=== PATIENT | female | born 2000 | race Caucasian/White ===

== ENCOUNTER 2021-12-18 12:29 | Emergency (ER) | payer MEDICARE, SELFPAY ==
[2021-12-18 12:36] VITALS: BP 120/78; PULSE 71; RESP 16; TEMP 36.8; O2SAT 97
--- NOTE | 2021-12-18 12:53 | ED.GENADUL_ITS ---
Discharge Plan Disposition Patient Disposition: HOME Condition: Stable Discharge Details Clinical Impression: Allergic reaction, Otitis externa Primary Care Provider: None,None ED Provider: Kevin Soria Home Meds and New Rx's Prescriptions: New prednisone 20 mg tablet 60 mg PO DAILY 5 Days Qty: 15 0RF Cortisporin-TC 3.3-3-10-0.5 mg/mL drops,suspension 4 drp otic (ear) TID 7 Days Qty: 10 0RF Discharge Instructions Instructions: General Allergic Reaction (ED) Additional Instructions: Cortisporin and prednisone as directed. Please watch for new or worsening symptoms and return to the ER for any concerns. Please continue establishing new local primary care follow-up here in [place] and follow-up at next available appointment Discharge Data Discharge Date/Time-TO BE ENTERED AT DEPARTURE: 12/18/21 15:12 Medical Decision Making This is a 21-year-old female who has a complicated past medical history, atypical allergic reactions and currently being worked up in [place] presenting with what mother reports as a normal allergic reaction which only steroids will help. While she groans and makes noises she is nonverbal and the capacity to give me a clear HPI. Clinically she has a rash to her forehead and bilateral hands as well as some swelling to her left ear canal with mild drainage. I believe initiating Cortisporin and steroid therapy is reasonable, mother reports this is what typically helps. Given the overall atypical presentation and multiple complaints, plan is to obtain routine screening laboratory values as well as a urinalysis. While there is question of simple urinary retention, will obtain a bladder scan. Bladder scan reveals no urine. Patient was able to provide a small urine sample. Will provide 1 L IV fluid as well. CBC, CMP, urinalysis all unremarkable for any obvious emergent process and/or infection. At this time and laboratory values are reassuring. Discussed laboratory values with mother. A single dose of IV Solu-Medrol has been provided. They are in the process of establishing primary care follow-up here in [place]. Discussed options with mother. She feels as though this is a rather typical presentation for her daughter and is quite comfortable taking her home her current condition. Plan is to provide a prescription for Cortisporin as well as a 5-day burst dose of steroids in addition to her IV Solu-Medrol today. Patient was unable to provide a stool sample here in the ER today for testing. Standard discharge and return precautions were provided. Patient understands, is agreeable to this plan, and has no additional questions or concerns upon discharge. This documentation was generated using [employer] dictation system, please disregard any oddities of phrase or misspellings. Lab Data Lab results reviewed: Yes I reviewed the patient's lab results. Labs: Laboratory Tests Range/Units 12/18/21 12/18/21 12/18/21 12:58 13:05 13:05 WBC (4.4-10.8) 10^3/uL 5.39 RBC (3.93-5.22) 10^6/uL 4.91 Hgb (11.2-15.7) g/dL 13.8 Hct (36.0-46.0) % 40.2 MCV (80-95) fL 82 MCH (27.0-33.0) pg 28.1 MCHC (32.0-36.0) % 34.3 RDW (11.7-14.6) % 12.4 Plt Count (130-400) 10^3/uL 351 MPV (8.0-11.0) fL 9.2 Immature Gran % 0.0 Neutrophils % 48.4 Lymphocytes % 41.2 Monocytes % 8.2 Eosinophils % 1.1 Basophils % 1.1 Nucleated RBC % (0.0-0.3) % 0.0 Absolute Neutrophils (1.2-6.7) 10^3/uL 2.61 Absolute Lymphocytes (1.2-3.4) 10^3/uL 2.22 Absolute Monocytes (0.1-0.8) 10^3/uL 0.44 Absolute Eosinophils (0.0-0.7) 10^3/uL 0.06 Absolute Basophils (0.0-0.2) 10^3/uL 0.06 Sodium (136-145) mmol/L 140 Potassium (3.5-5.1) mmol/L 3.5 Chloride (98-107) mmol/L 107 Carbon Dioxide (21.0-32.0) mmol/L 23.7 Anion Gap (3-11) mmol/L 9.3 BUN (7-18) mg/dL 7 Creatinine (0.55-1.02) mg/dL 0.7 Estimated GFR/1.73 m2 (mL/min/1.73m2) >= 60.00 Glucose (74-106) mg/dL 89 Calcium (8.5-10.1) mg/dL 8.7 Total Bilirubin (0.2-1.0) mg/dL 0.6 AST (15-37) U/L 18 ALT (14-59) U/L 18 Alkaline Phosphatase (46-116) U/L 70 Total Protein (6.4-8.2) g/dL 7.3 Albumin (3.4-5.0) g/dL 3.9 Lipase (73-393) U/L 106 Urine Color (Yellow) Yellow Urine Clarity (Clear) Cloudy Urine pH (5-8) 5.5 Ur Specific [place] (1.005-1.025) >= 1.030 H Urine Protein (Negative) mg/dL Trace H Urine Ketones (Negative) mg/dL Trace H Urine Blood (Negative) Trace-intact H Urine Nitrite (Negative) Negative Urine Bilirubin (Negative) Negative Urine Urobilinogen (Up TO 0.2) EU/dL 0.2 Ur Leukocyte Esterase (Negative) Negative Urine RBC (0-2) HPF 3-5 H Urine WBC (0-5) HPF 0-2 Ur Epithelial Cells (Negative) HPF Many Urine Crystals (Negative) HPF Negative Urine Bacteria (Negative) HPF Many Urine Casts (Negative) LPF Negative Urine Mucus (Negative) Negative Ur Culture Indicated? No/Sq. Contamination Urine Glucose (Negative) mg/dL Negative HPI General Mode of arrival: ambulatory . Date/Time Provider Initiated Documentation: 12/18/21 12:37 . Limitations to Documentation: other (Baseline cognitive disability) . Information obtained by: patient and family . 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 The patient's mother reports that she has a complicated past medical history that includes a broad diagnosis of mast cell syndrome which essentially means that she gets these atypical allergic reactions. They have moved from [place] to the [facility] and overall her allergies are improved. Over the past several days she has developed swelling on her forehead, bilateral hands, reports headache, abdominal pain, intermittent diarrhea and constipation which again is all typical for her allergic condition. They state that they are being evaluated and worked up by specialist in [place]. Mother reports that she attempted an [id number] supplement 2 days ago to see if it would help and that is when the diarrhea began, stopped the supplement and no longer having any diarrhea. Denies recent illness or trauma. Reports that she often gets fluid behind her ears as well as nasal congestion, and the only treatment is steroids and eardrops. Mother reports that she has a history of C. difficile but this is not a typical C. difficile presentation for her and she is no longer having diarrhea. She also states that she tends to have urinary retention and or urinary symptoms when she has a flareup. Related Data Home Medications Medication Instructions Recorded Confirmed [id number] 3.3 4 drp otic (ear) TID 7 days #10 mL 12/18/21 mg-3 mg-10 mg-0.5 mg/mL ear drops,susp (Cortisporin-TC) prednisone 20 mg tablet 60 mg PO DAILY 5 days #15 tabs 12/18/21 Previous Rx's Medication Instructions Recorded [id number] 3.3 4 drp otic (ear) TID 7 days #10 mL 12/18/21 mg-3 mg-10 mg-0.5 mg/mL ear drops,susp (Cortisporin-TC) prednisone 20 mg tablet 60 mg PO DAILY 5 days #15 tabs 12/18/21 Allergies Allergy/AdvReac Type Severity Reaction Status Date / Time amoxicillin Allergy Unverified 12/18/21 12:42 pollen extracts Allergy Unverified 12/18/21 12:42 General Stated Complaint: Abd Prob TRIP: 4 Review of Systems Constitutional Constitutional: Denies fever(s) and Reports headache(s) ENT Ears, Nose, Mouth, and Throat: Reports headache(s), Denies lip swelling, Denies neck pain and Denies tongue swelling Cardiovascular Cardiovascular: Denies chest pain and Denies dyspnea Respiratory Respiratory: Denies cough, Denies dyspnea and Denies wheezing Gastrointestinal Gastrointestinal: Reports abdominal pain, Reports constipation, Reports diarrhea and Denies vomiting Genitourinary Genitourinary: Denies dysuria and Reports urinary urgency Musculoskeletal Musculoskeletal: Denies neck pain Integumentary/Breasts Skin/Breast: Reports rash Neurologic Neurologic: Reports headache(s) Allergic/Immunologic Allergic/Immunologic: Denies lip swelling, Denies tongue swelling and Denies wheezing PFSH All Active Problems (Updated 12/19/21 @ 09:02 by MELY Muñoz) Allergic reaction (Acute) Otitis externa (Acute) Social History Smoking/Tobacco Use Status: Never Smoking risk assessment performed?: Yes Alcohol Intake: never Substance use type: does not use Do you feel safe at home: Yes Do you feel safe in your relationship?: Yes Exam Const General: cooperative and healthy appearing Orientation: alert and awake HENWY Head: normal to inspection, normocephalic and atraumatic Ears: mastoids normal Mouth: moist mucous membranes Throat: posterior oropharynx normal Other: Right TM with minimal erythema but no air-fluid level, bulging or retraction. Canal is unremarkable. Left TM is unremarkable, left canal with mild swelling and white drainage. Centrally on her forehead there is a mild papular eryth ematous rash which is blanchable, no signs of secondary infection. Skin is intact. Eyes General: appearance normal, both eyes and all related structures Conjunctivae: conjunctivae normal Neck Neck: normal visual inspection, full ROM, no lymphadenopathy, trachea midline, supple and nontender Resp Effort & Inspection: normal respiratory effort and able to speak in complete sentences Auscultation: clear to auscultation bilaterally Cardio Rate: regular rate Rhythm: regular rhythm GI Inspection: normal to inspection Palpation: soft, not firm, no guarding, no pulsatile masses and nontender Auscultation: normal bowel sounds Back/Spine/Pelvis Back: No back tenderness Skin General skin exam: erythema Rashes: rashes noted Neuro General: patient alert, patient awake, moves all extremities, no focal motor deficits and other (Mother reports that the patient is at her baseline mental status) Gait: normal gait Motor: movement abnormality noted Sensory Exam: no sensory deficits noted Extrem General: full ROM and capillary refill normal Other: Bilateral hands, more so on the dorsal aspect at the base of the thumb and over the first metacarpal there is a papular erythematous excoriated rash. Blanchable. No signs of secondary infection. Neuro, vascular, tendon intact. Psych Appearance: grossly normal Mental Status: mental status grossly normal Course Vital Signs Vital signs: Vital Signs Temperature 36.8 C 12/18/21 12:36 Pulse 71 12/18/21 12:36 Respiratory Rate 16 12/18/21 12:36 Blood Pressure 120/78 12/18/21 12:36 Pulse Oximetry 97 12/18/21 12:36 Temperature 36.8 C 12/18/21 12:36 Pulse 71 12/18/21 12:36 Respiratory Rate 16 12/18/21 12:36 Respiratory Effort 12/18/21 12:44 Blood Pressure 120/78 12/18/21 12:36 Pulse Oximetry 97 12/18/21 12:36 Comment 12/18/21 12:36
[2021-12-18] MEDS: Normal Saline 1,000 ML 1000 ML IV (13:08)
[2021-12-18 13:14] LABS: Absolute Basophil Count 0.06 10^3/uL (0.0-0.2); Absolute Eosinophil Count 0.06 10^3/uL (0.0-0.7); Absolute Lymphocyte Count 2.22 10^3/uL (1.2-3.4); Absolute Monocyte Count 0.44 10^3/uL (0.1-0.8); Absolute Neutrophil Count 2.61 10^3/uL (1.2-6.7); Basophils % 1.1; Eosinophils % 1.1; HCT 40.2 % (36.0-46.0); HGB 13.8 g/dL (11.2-15.7); Lymphocytes % 41.2; MCH 28.1 pg (27.0-33.0); MCHC 34.3 % (32.0-36.0); MCV 82 fL (80-95); MPV 9.2 fL (8.0-11.0); Monocytes % 8.2; Neutrophils % 48.4; Platelet Count 351 10^3/uL (130-400); RBC 4.91 10^6/uL (3.93-5.22); RDW 12.4 % (11.7-14.6); RDW-SD 36.8 fL; WBC 5.39 10^3/uL (4.4-10.8)
[2021-12-18 13:20] LABS: Bilirubin Negative (Negative); Blood Trace-intact (Negative); Clarity Cloudy (Clear); Glucose Negative (Negative); Ketones Trace mg/dL (Negative); Leukocyte Esterase Negative (Negative); Nitrite Negative (Negative); Specific Gravity >= 1.030 (1.005-1.025); Urobilinogen 0.2 EU/dL (Up TO 0.2); pH 5.5 (5-8)
[2021-12-18 13:28] LABS: Bacteria Many HPF (Negative); Casts Negative LPF (Negative); Crystals Negative HPF (Negative); Epithelial Cells Many HPF (Negative); Mucus Negative (Negative); WBC 0-2 HPF (0-5)
[2021-12-18 13:29] LABS: C & S Indicated? No/Sq. Contamination
[2021-12-18 13:44] LABS: ALT 18 U/L (14-59); AST 18 U/L (15-37); Albumin 3.9 g/dL (3.4-5.0); Alkaline Phosphatase 70 U/L (46-116); Anion Gap 9.3 mmol/L (3-11); BUN 7 mg/dL (7-18); Bilirubin, Total 0.6 mg/dL (0.2-1.0); CO2 23.7 mmol/L (21.0-32.0); CREATININE 0.7 mg/dL (0.55-1.02); Calcium 8.7 mg/dL (8.5-10.1); Chloride 107 mmol/L (98-107); Glucose 89 mg/dL (74-106); Lipase 106 U/L (73-393); Potassium 3.5 mmol/L (3.5-5.1); Sodium 140 mmol/L (136-145); Total Protein 7.3 g/dL (6.4-8.2)
[2021-12-18] MEDS: methylPREDNISolone SUCC 125 MG VIAL IVP (14:21)
[2021-12-18 15:03] VITALS: BP 155/99; PULSE 84; RESP 21; TEMP 37; O2SAT 98
[2021-12-18 15:06] VITALS: BP 155/99; PULSE 84; RESP 21; TEMP 37; O2SAT 98
== END 2021-12-18 15:12 | disposition home or self-care (01) ==
PROVIDERS: Emergency Provider Physician Assistant
DX: H60.92 Unspecified otitis externa, left ear (principal); T78.40XA Allergy, unspecified, initial encounter; R41.89 Other symptoms and signs involving cognitive functions and awareness; D89.40 Mast cell activation, unspecified
CPT/HCPCS: 36415; 80053; 81025; 83690; 96361; 96374; 99284; 81003; 81015; 85025; J2930

== ENCOUNTER 2021-12-28 16:43 | Emergency (ER) | payer MEDICARE, SELFPAY ==
[2021-12-28 16:44] VITALS: BP 102/60; PULSE 72; RESP 16; TEMP 36.6; O2SAT 98
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
[2021-12-28 17:25] LABS: Abs Immature Grans 0.02 10^3/uL (0.0-0.06); Absolute Basophil Count 0.03 10^3/uL (0.0-0.2); Absolute Eosinophil Count 0.01 10^3/uL (0.0-0.7); Absolute Lymphocyte Count 1.11 10^3/uL (1.2-3.4); Absolute Monocyte Count 0.32 10^3/uL (0.1-0.8); Absolute Neutrophil Count 4.46 10^3/uL (1.2-6.7); Basophils % 0.5; Eosinophils % 0.2; HCT 34.8 % (36.0-46.0); HGB 11.5 g/dL (11.2-15.7); Immature Grans % 0.3; Lymphocytes % 18.7; MCH 27.8 pg (27.0-33.0); MCV 84 fL (80-95); Monocytes % 5.4; Neutrophils % 74.9; RBC 4.14 10^6/uL (3.93-5.22); RDW 12.8 % (11.7-14.6); RDW-SD 39.5 fL; WBC 5.95 10^3/uL (4.4-10.8)
[2021-12-28 17:35] LABS: ALT 15 U/L (14-59); AST 14 U/L (15-37); Albumin 3.5 g/dL (3.4-5.0); Alkaline Phosphatase 69 U/L (46-116); Anion Gap 8.6 mmol/L (3-11); BUN 9 mg/dL (7-18); Bilirubin, Total 0.4 mg/dL (0.2-1.0); CO2 23.4 mmol/L (21.0-32.0); CREATININE 0.6 mg/dL (0.55-1.02); Calcium 8.4 mg/dL (8.5-10.1); Chloride 109 mmol/L (98-107); Glucose 93 mg/dL (74-106); Potassium 3.8 mmol/L (3.5-5.1); Sodium 141 mmol/L (136-145); Total Protein 6.6 g/dL (6.4-8.2)
[2021-12-28 17:44] LABS: HCG Qual (Serum) Negative
[2021-12-28] MEDS: Normal Saline 1,000 ML 1000 ML IV (18:12)
[2021-12-28 18:20] VITALS: PULSE 65; RESP 16
--- NOTE | 2021-12-30 09:24 | NUR.NOTE ---
Per Dr. Jolley the patient needs to establish care with a PCP, put the referral in the anesthesiologist and critical care's box for follow assistance. A referral was also made to [facility]-Neurology, Dr. Miller for a seizure in 1-2 weeks. I faxed the referral and put in the anesthesiologist and critical care's box for follow up.Nursing Note:
== END 2021-12-28 19:02 | disposition home or self-care (01) ==
LOC: ER 19:07
PROVIDERS: Emergency Provider Physician Assistant
DX: R56.9 Unspecified convulsions (principal)
CPT/HCPCS: 36415; 80053; 96360; 99284; 84703; 85025; 99283

== ENCOUNTER → 2022-01-08 09:49 | Outpatient (BNVA) | payer MEDICARE, SELFPAY | PROVIDERS: Referring Provider Physician Assistant; Visit Provider Psychiatry & Neurology Neurology | DX: D89.49 Other mast cell activation disorder (principal); F84.0 Autistic disorder; Z86.61 Personal history of infections of the central nervous system; G40.109 Localization-related (focal) (partial) symptomatic epilepsy and epileptic syndromes with simple partial seizures, not intractable, without status epilepticus; R52 Pain, unspecified | CPT/HCPCS: 99215 ==

== ENCOUNTER 2022-03-09 21:42 | Emergency (ER) | payer MEDICARE, MEDICAID, SELFPAY ==
[2022-03-09 21:48] VITALS: BP 134/87; PULSE 70; RESP 18; TEMP 37; O2SAT 96
--- NOTE | 2022-03-09 22:38 | W.ED.GENAD ---
Discharge Plan Disposition Patient Disposition: HOME Condition: Stable Discharge Details Clinical Impression: Mast cell activation, unspecified Primary Care Provider: Willem Aguirre ED Provider: Jaxson Swain Home Meds and New Rx's Prescriptions: New hydroxyzine HCl 25 mg tablet 25 mg PO QID PRN (Reason: itching) Qty: 30 1RF methylprednisolone [Medrol (Alfredito)] 4 mg tablets,dose pack See Rx Instructions .ROUTE .COMPLEX Qty: 21 0RF Rx Instructions: orally per package directions No Action albuterol sulfate 90 mcg/actuation HFA aerosol inhaler 2 puff inhalation Q6H PRN Discharge Instructions Instructions: Dermatitis (ED) Additional Instructions: Patient if patient develops any new or significant worsening of symptoms please return immediately to the emergency department for reassessment. If any of patient's rash starts to become persistently erythematous or has worsening drainage or signs of infection return immediately to the emergency department otherwise take medication as prescribed and follow-up with primary care provider. Referrals: Willem Aguirre MD [Primary Care Provider] - 1 week Discharge Data Discharge Date/Time-TO BE ENTERED AT DEPARTURE: 03/09/22 23:38 Medical Decision Making Patient presenting to the emergency department for chief complaint of rash. Mother states long ongoing history of mast cell disorder with months of activated rash. Over the past 5 days there appears to have acutely worsened causing more pain and discomfort. 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 Physical exam shows diffuse erythematous papules noted to forehead, upper lip, cheeks, and right hand. Lung sounds are clear, no findings in the oropharynx, no respiratory symptoms. After physical exam I do feel that this is patient's chronic mast cell disorder with acute worsening of symptoms. Discussed with mother use of antihistamines which she states that typically do not work except for hydroxyzine. Discussed with mother use of steroids as well given more severe symptoms. Mother does state that these have helped and so we will give patient dose of Decadron. Mother does report some increased odorous urine and question of painful urination by patient. Will check urinalysis but patient otherwise in stable condition with no obvious findings but difficult to fully obtain history due to patient's autism disorder. Urinalysis is unremarkable for any infectious findings. I wonder if there is other areas of lesions or involvement causing discomfort. Will prescribe hydroxyzine for home use due to mother stating that this works better than other antihistamines and also a Medrol Dosepak. Patient placed upon follow-up list to follow-up with primary care provider for reassessment preferably in the next week given that this is being going on for months with acute worsening over the past 5 days. After discussion of diagnosis and plan of care mother has no further needs, questions, or concerns and states clear understanding to return to the emergency department for any worsening symptoms. This documentation was generated using [employer] system, please disregard any oddities of phrase or misspellings. Lab Data Lab results reviewed: Yes I reviewed the patient's lab results. HPI General Mode of arrival: ambulatory. Date/Time Provider Initiated Documentation: 03/09/22 21:44. Limitations to Documentation: no limitations. Information obtained by: patient. History of Present Illness 21 year old F presents to the emergency department with the chief complaint of rash, described as moderate, severe and similar to prior episodes, Patient started experiencing this month(s) and it has been constant and intermittent. No relieving factors improve symptom(s), Other factors that worsen symptoms (Environmental allergens) . Patient did receive the following treatments prior to arrival, none Related Data Home Medications Medication Instructions Recorded Confirmed albuterol sulfate 90 mcg/actuation 2 puff inhalation Q6H PRN 01/08/22 03/09/22 aerosol inhaler hydroxyzine HCl 25 mg tablet 25 mg PO QID PRN itching #30 tabs 03/09/22 methylprednisolone 4 mg tablets in See Rx Instructions PO .COMPLEX 03/09/22 a dose pack (Medrol (Alfredito)) #21 dose pk Previous Rx's Medication Instructions Recorded hydroxyzine HCl 25 mg tablet 25 mg PO QID PRN itching #30 tabs 03/09/22 methylprednisolone 4 mg tablets in See Rx Instructions PO .COMPLEX 03/09/22 a dose pack (Medrol (Alfredito)) #21 dose pk Allergies Allergy/AdvReac Type Severity Reaction Status Date / Time Iodinated Contrast Media Allergy Unknown Verified 03/09/22 22:00 amoxicillin Allergy Unverified 03/09/22 22:00 pollen extracts Allergy Unverified 03/09/22 22:00 mold Allergy Unknown Uncoded 03/09/22 22:00 General Stated Complaint: Allergic TRIP: 3 Review of Systems Narrative: Difficult to obtain due to autism disorder-review of systems obtained by mother Constitutional Constitutional: Denies fever(s) ENT Ears, Nose, Mouth, and Throat: Denies throat swelling and Denies tongue swelling Cardiovascular Cardiovascular: Denies chest pain and Denies dyspnea Respiratory Respiratory: Denies cough, Denies dyspnea, Denies stridor and Denies wheezing Gastrointestinal Gastrointestinal: Denies abdominal pain, Denies nausea and Denies vomiting Genitourinary Genitourinary: Reports dysuria and Reports other (Odorous urine) Musculoskeletal Musculoskeletal: Denies arthralgias and Denies joint swelling Integumentary/Breasts Skin/Breast: Reports as per HPI, Reports erythema and Reports rash Allergic/Immunologic Allergic/Immunologic: Reports as per HPI, Denies throat swelling, Denies tongue swelling and Denies wheezing PFSH All Active Problems (Updated 03/09/22 @ 23:09 by Jaxson Swain NP) Mast cell activation, unspecified (Acute) Partial epilepsy (Acute) Pain (Acute) Medical History Autism spectrum disorder since diagnosis of meningitis at age 3 History of Clostridioides difficile colitis at age 8 Mast cell disorder Meningitis at age 3 Seizure disorder since diagnosis of meningitis at age 3 Surgical History H/O wisdom tooth extraction History of ear surgery multiple, bilateral, with reconstruction, secondary to meningitis; 2008 and 2011 History of sinus surgery 2006 Social History Smoking/Tobacco Use Status: Never Smoking risk assessment performed?: Yes Alcohol Intake: never Drug use: Never Substance use type: does not use Household members: family current occupation: Disabled Do you feel safe at home: Yes Do you feel safe in your relationship?: Yes Exam Const General: cooperative, no acute distress and not ill appearing Orientation: alert and awake HENMT Ears: TM's normal bilaterally and EAC's normal General nose exam: external nose normal Mouth: oral mucosae normal, lip normal (Lesion on lip but no signs of angioedema), tongue normal, oropharynx normal and moist mucous membranes Throat: posterior oropharynx normal Resp Effort & Inspection: normal respiratory effort, able to speak in complete sentences and no respiratory distress Auscultation: clear to auscultation bilaterally Cardio Rate: regular rate Rhythm: regular rhythm Heart Sounds: S1 normal and S2 normal Skin Rashes: rashes noted papules diffuse multiple locations morphology dome-shaped, surface blanching and erythematous and tender Neuro General: patient alert, patient awake, moves all extremities and no focal motor deficits Course Vital Signs Vital signs: Vital Signs Temperature 37.0 C 03/09/22 21:48 Pulse 70 03/09/22 21:48 Respiratory Rate 18 03/09/22 21:48 Blood Pressure 134/87 03/09/22 21:48 Pulse Oximetry 96 03/09/22 21:48 Temperature 37.0 C 03/09/22 21:48 Temperature Source Skin 03/09/22 21:48 Pulse 70 03/09/22 21:48 Respiratory Rate 18 03/09/22 21:48 Respiratory Effort 03/09/22 21:57 Respiratory Pattern Normal 03/09/22 21:57 Blood Pressure 134/87 03/09/22 21:48 Blood Pressure Position Sitting 03/09/22 21:48 Pulse Oximetry 96 03/09/22 21:48 Oxygen Delivery Method Room Air 03/09/22 21:48 Oxygen Flow Rate 0 03/09/22 21:48 Pain Level 5 03/09/22 21:48
[2022-03-09] MEDS: hydrOXYzine HCL 25 MG TAB PO (22:44)
[2022-03-09] MEDS: Dexamethasone 10 MG/ML VIAL PO (22:49)
[2022-03-09 23:15] LABS: Bilirubin Negative (Negative); Blood Negative (Negative); Clarity Clear (Clear); Glucose Negative (Negative); Ketones Negative (Negative); Leukocyte Esterase Negative (Negative); Nitrite Negative (Negative); Specific Gravity 1.015 (1.005-1.025); Urobilinogen 0.2 EU/dL (Up TO 0.2)
--- NOTE | 2022-03-09 23:34 | NUR.NOTE ---
Referral faxed to [facility] Dr Aguirre to f/u in a week to reassess Mast Cell Disorder.Nursing Note:
== END 2022-03-09 23:38 | disposition home or self-care (01) ==
PROVIDERS: Emergency Provider Nurse Practitioner Family; PCP Family Medicine
DX: D89.40 Mast cell activation, unspecified (principal)
CPT/HCPCS: 99283; 81003; 99284; J1100

== ENCOUNTER 2022-07-10 10:04 | Emergency (ER) | payer MEDICARE, SELFPAY | END 2022-07-10 11:46 | LOC: ER 10:08 | PROVIDERS: PCP Family Medicine | DX: Z53.21 Procedure and treatment not carried out due to patient leaving prior to being seen by health care provider (principal) ==

== ENCOUNTER 2023-03-28 07:07 | Emergency (ER) | payer MEDICARE, MEDICAID, SELFPAY ==
[2023-03-28 07:13] VITALS: BP 142/92; PULSE 90; RESP 18; TEMP 36.3; O2SAT 97
--- NOTE | 2023-03-28 07:21 | W.ED.GENAD ---
Discharge Plan Discharge Details Chief Complaint: GenMedical Clinical Impression: Acute right otitis media, Hives Primary Care Provider: Willem Aguirre ED Provider: Naun Jeff Home Meds and New Rx's Prescriptions: No Action albuterol sulfate 90 mcg/actuation HFA aerosol inhaler 2 puff inhalation Q6H PRN fluticasone propionate [Flonase Allergy Relief] 50 mcg/actuation spray,suspension 1 spray intranasal DAILY Rx Instructions: administer into each nostril hydroxyzine HCl 25 mg tablet 25 mg PO QID PRN (Reason: itching) Qty: 30 1RF Medical Decision Making 22-year-old female with a past medical history of mast cell degranulation syndrome, previous mastoiditis, who presents today for evaluation of runny nose, congestion, mild cough, and rash. Mother states that the mother was sick with runny nose congestion and cough few days ago, and is concerned that she has transmitted it to her daughter. Classically when the daughter becomes ill she develops a rash secondary to her mast cell degranulation syndrome, and breaks out in hives, in addition to her other symptoms. Patient is not able to add anything to the historical component. Mother denies any complaints on behalf of the patient otherwise. She has otherwise been eating and drinking well. She has not received any new medications today. Exam demonstrates mild rash on the patient's dorsal aspect of her hands, as well as her forehead. Right-sided otitis media. No meningeal signs. No mastoid tenderness. Concern for viral etiology, likely COVID or flu, however there is now evidence of bacterial otitis media. We will treat the patient's OM, give Benadryl and steroids for her rash and suspected mild degranulation syndrome, gently rehydrate monitor closely and reassess. Patient will be signed out to my colleague for follow-up on labs and reassessment. HPI General Date/Time Provider Initiated Documentation: 03/28/23 07:10. HPI Narrative: 22-year-old female with a past medical history of mast cell degranulation syndrome, previous mastoiditis, who presents today for evaluation of runny nose, congestion, mild cough, and rash. Mother states that the mother was sick with runny nose congestion and cough few days ago, and is concerned that she has transmitted it to her daughter. Classically when the daughter becomes ill she develops a rash secondary to her mast cell degranulation syndrome, and breaks out in hives, in addition to her other symptoms. Patient is not able to add anything to the historical component. Mother denies any complaints on behalf of the patient otherwise. She has otherwise been eating and drinking well. She has not received any new medications today. Related Data Home Medications Medication Instructions Recorded Confirmed albuterol sulfate 90 mcg/actuation 2 puff inhalation Q6H PRN 01/08/22 10/29/22 aerosol inhaler hydroxyzine HCl 25 mg tablet 25 mg PO QID PRN itching #30 tabs 03/09/22 10/29/22 fluticasone propionate 50 1 spray intranasal DAILY 10/28/22 10/29/22 mcg/actuation nasal spray,suspension (Flonase Allergy Relief) Previous Rx's Medication Instructions Recorded hydroxyzine HCl 25 mg tablet 25 mg PO QID PRN itching #30 tabs 03/09/22 Allergies Allergy/AdvReac Type Severity Reaction Status Date / Time Iodinated Contrast Media Allergy Unknown Verified 10/28/22 15:19 amoxicillin Allergy Unverified 10/28/22 15:19 cat dander Allergy Verified 10/28/22 15:20 horse dander Allergy Verified 10/28/22 15:20 pollen extracts Allergy Unverified 10/28/22 15:19 mold Allergy Unknown Uncoded 10/28/22 15:19 birds Allergy Uncoded 10/28/22 15:20 General Stated Complaint: GenMedical TRIP: 3 Review of Systems All systems reviewed & are unremarkable except as noted in HPI and below PFSH All Active Problems (Updated 03/28/23 @ 07:53 by Naun Jeff DO) Acute right otitis media (Acute) Hives (Acute) History of meningitis (Acute) Hearing loss (Acute) Partial epilepsy (Acute) Pain (Acute) Medical History Autism spectrum disorder since diagnosis of meningitis at age 3 History of Clostridioides difficile colitis at age 8 Mast cell disorder Meningitis at age 3 Seizure disorder since diagnosis of meningitis at age 3 Surgical History H/O wisdom tooth extraction History of ear surgery multiple, bilateral, with reconstruction, secondary to meningitis; 2008 and 2011 History of sinus surgery 2006 Social History Smoking/Tobacco Use Status: Never Smoking risk assessment performed?: Yes Alcohol Intake: never Drug use: Never Substance use type: does not use Household members: family Housing: other current occupation: Disabled Do you feel safe at home: Yes Do you feel safe in your relationship?: Yes Additional Social history: [facility] Exam Narrative Exam Narrative: 1.Const: Well-nourished, Well-developed, appearing stated age 2.Eyes: PERRL, no conjunctival injection, and symmetrical lids. 3.ENT: Atraumatic external nose and ears. Moist MM. Neck: Symmetric, trachea midline, No thyromegaly. Right-sided otitis media. No mastoid tenderness. Left-sided tympanic membrane normal. 4.CVS: +S1/S2, No murmurs or gallops. Peripheral pulses 2+ and equal in all extremities. Brisk capillary refill in all extremities. 5.RESP: Unlabored respiratory effort. Clear to auscultation bilaterally. No wheezes rales or rhonchi 6.GI: Soft, Nontender/Nondistended, No hepatosplenomegaly. No guarding or rebound. 7.MSK: Normocephalic/Atraumatic, Extremities w/o deformity or ttp No cyanosis or clubbing, Normal movement of all extremities 8.Skin: Warm, Dry. Mild hive and small wheal-like rash over the hands bilaterally and the forehead. 9.Neuro: marshmallow maker II-XII grossly intact. Sensation grossly intact, no focal neurologic deficits. 10.Psych: (AAO) x3. Appropriate mood and affect Course Vital Signs Vital signs: Vital Signs Temperature 36.3 C L 03/28/23 07:13 Pulse 90 03/28/23 07:13 Respiratory Rate 18 03/28/23 07:13 Blood Pressure 142/92 H 03/28/23 07:13 Pulse Oximetry 97 03/28/23 07:13 Temperature 36.3 C L 03/28/23 07:13 Temperature Source Tympanic 03/28/23 07:13 Pulse 90 03/28/23 07:13 Respiratory Rate 18 03/28/23 07:13 Respiratory Effort Normal 03/28/23 07:19 Blood Pressure 142/92 H 03/28/23 07:13 Pulse Oximetry 97 03/28/23 07:13 Oxygen Delivery Method Room Air 03/28/23 07:13 Oxygen Flow Rate 0 03/28/23 07:13
[2023-03-28] MEDS: Normal Saline 500 ML IV (07:30)
[2023-03-28] MEDS: diphenhydrAMINE 50 MG/ML VIAL IVP (07:30)
[2023-03-28] MEDS: methylPREDNISolone SUCC 125 MG VIAL IVP (07:30)
[2023-03-28 07:56] LABS: Abs Immature Grans 0.01 10^3/uL (0.0-0.06); Absolute Basophil Count 0.03 10^3/uL (0.0-0.2); Absolute Eosinophil Count 0.03 10^3/uL (0.0-0.7); Absolute Lymphocyte Count 0.95 10^3/uL (1.2-3.4); Absolute Neutrophil Count 2.17 10^3/uL (1.2-6.7); Basophils % 0.8; Eosinophils % 0.8; HCT 36.1 % (36.0-46.0); Immature Grans % 0.3; Lymphocytes % 25.7; MCH 26.5 pg (27.0-33.0); MCHC 33.2 % (32.0-36.0); MCV 80 fL (80-95); MPV 8.9 fL (8.0-11.0); Monocytes % 13.6; Neutrophils % 58.8; Platelet Count 273 10^3/uL (130-400); RBC 4.53 10^6/uL (3.93-5.22); RDW 14.3 % (11.7-14.6); RDW-SD 41.6 fL; WBC 3.69 10^3/uL (4.4-10.8)
--- NOTE | 2023-03-28 08:09 | ED.PROG_ITS ---
Date of service: 03/28/23 Time of Service: 08:09 Medical Decision Making This patient was signed out to me. Please see previous notes for H&P and initial eval. In brief, 22yo F with mast cell degranulation syndrome presenting with URI syndromes. Otitis media on exam. Plan to followup labs and reassess; if labs reassuring and symptomatically improved, would discharge home on azithromycin. Labs as below, CBC & CMP reassuring, no leukocytosis. Mild hypokalemia; oral replacement given here and advised to follow up with PCP. 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 On reassessment non-toxic appearing with reassuring vital signs. Discharged home on azithromycin with course of prednisolone; discharge instructions including return precautions were reviewed with mother who verbalized understanding. All questions were answered and they are in full agreement with the plan. Lab Data Lab results reviewed: Yes I reviewed the patient's lab results. Labs: Laboratory Tests Range/Units 03/28/23 03/28/23 03/28/23 07:19 07:40 07:40 WBC (4.4-10.8) 10^3/uL 3.69 L RBC (3.93-5.22) 10^6/uL 4.53 Hgb (11.2-15.7) g/dL 12.0 Hct (36.0-46.0) % 36.1 MCV (80-95) fL 80 MCH (27.0-33.0) pg 26.5 L MCHC (32.0-36.0) % 33.2 RDW (11.7-14.6) % 14.3 Plt Count (130-400) 10^3/uL 273 MPV (8.0-11.0) fL 8.9 Immature Gran % 0.3 Neutrophils % 58.8 Lymphocytes % 25.7 Monocytes % 13.6 Eosinophils % 0.8 Basophils % 0.8 Nucleated RBC % (0.0-0.3) % 0.0 Absolute Neutrophils (1.2-6.7) 10^3/uL 2.17 Absolute Lymphocytes (1.2-3.4) 10^3/uL 0.95 L Absolute Monocytes (0.1-0.8) 10^3/uL 0.50 Absolute Eosinophils (0.0-0.7) 10^3/uL 0.03 Absolute Basophils (0.0-0.2) 10^3/uL 0.03 Sodium (136-145) mmol/L 137 Potassium (3.5-5.1) mmol/L 3.3 L Chloride (98-107) mmol/L 103 Carbon Dioxide (21.0-32.0) mmol/L 22.7 Anion Gap (3-11) mmol/L 11.3 H BUN (7-18) mg/dL 9 Creatinine (0.55-1.02) mg/dL 0.8 Est GFR (CKD-EPI 2020) (mL/min/1.73m2) 105.45 Glucose (74-106) mg/dL 103 Calcium (8.5-10.1) mg/dL 9.1 Total Bilirubin (0.2-1.0) mg/dL 0.6 AST (15-37) U/L 24 ALT (14-59) U/L 17 Alkaline Phosphatase (46-116) U/L 80 Total Protein (6.4-8.2) g/dL 7.2 Albumin (3.4-5.0) g/dL 3.7 COVID-19 Source Cancelled SARS-CoV-2 (PCR) Cancelled Influenza Type A (PCR) Cancelled Influenza Type B (PCR) Cancelled RSV (PCR) Cancelled Range/Units 03/28/23 08:35 WBC (4.4-10.8) 10^3/uL RBC (3.93-5.22) 10^6/uL Hgb (11.2-15.7) g/dL Hct (36.0-46.0) % MCV (80-95) fL MCH (27.0-33.0) pg MCHC (32.0-36.0) % RDW (11.7-14.6) % Plt Count (130-400) 10^3/uL MPV (8.0-11.0) fL Immature Gran % Neutrophils % Lymphocytes % Monocytes % Eosinophils % Basophils % Nucleated RBC % (0.0-0.3) % Absolute Neutrophils (1.2-6.7) 10^3/uL Absolute Lymphocytes (1.2-3.4) 10^3/uL Absolute Monocytes (0.1-0.8) 10^3/uL Absolute Eosinophils (0.0-0.7) 10^3/uL Absolute Basophils (0.0-0.2) 10^3/uL Sodium (136-145) mmol/L Potassium (3.5-5.1) mmol/L Chloride (98-107) mmol/L Carbon Dioxide (21.0-32.0) mmol/L Anion Gap (3-11) mmol/L BUN (7-18) mg/dL Creatinine (0.55-1.02) mg/dL Est GFR (CKD-EPI 2020) (mL/min/1.73m2) Glucose (74-106) mg/dL Calcium (8.5-10.1) mg/dL Total Bilirubin (0.2-1.0) mg/dL AST (15-37) U/L ALT (14-59) U/L Alkaline Phosphatase (46-116) U/L Total Protein (6.4-8.2) g/dL Albumin (3.4-5.0) g/dL COVID-19 Source Nasal/Nares SARS-CoV-2 (PCR) Negative Influenza Type A (PCR) Influenza Type B (PCR) RSV (PCR) Sign Out Sign Out Data: Sign Out Comment: Mild mast cell degranulation syndrome suspected, right-sided otitis media present. Recommend azithromycin outpatient treatment. Follow-up on labs and reassess after medications Last updated by Naun Jeff DO at 03/28/23 07:58 Discharge Plan Disposition Patient Disposition: Home Condition: Good Discharge Details Clinical Impression: Acute right otitis media, Hives Primary Care Provider: Willem Aguirre ED Provider: Cass Whitfield Home Meds and New Rx's Prescriptions: New azithromycin [Zithromax] 500 mg tablet 500 mg PO DAILY 5 Days Qty: 5 0RF prednisolone 5 mg tablet 10 mg PO DAILY Qty: 14 0RF No Action albuterol sulfate 90 mcg/actuation HFA aerosol inhaler 2 puff inhalation Q6H PRN fluticasone propionate [Flonase Allergy Relief] 50 mcg/actuation spray,suspension 1 spray intranasal DAILY Rx Instructions: administer into each nostril hydroxyzine HCl 25 mg tablet 25 mg PO QID PRN (Reason: itching) Qty: 30 1RF phenazopyridine 200 mg tablet 200 mg PO PRN PRN Patient Comments: TAKE ONE TABLET BY MOUTH THREE TIMES A DAY NEEDED FOR PAIN WITH URINATION Discharge Instructions Instructions: Ear Infection (ED) Additional Instructions: Take azithromycin for the next 5 days for ear infection. Take cetirizine over the counter at home as well as the prednisolone we have prescribed. Call your primary care doctor tomorrow to schedule an appointment within the next three days to follow up on your visit here. Return to the emergency department for new or worsening symptoms, including worsening rash, difficulty breathing, or if symptoms have not improved within the next 48 hours. Referrals: Willem Aguirre MD [Primary Care Provider] -
[2023-03-28 08:22] LABS: ALT 17 U/L (14-59); AST 24 U/L (15-37); Albumin 3.7 g/dL (3.4-5.0); Alkaline Phosphatase 80 U/L (46-116); Anion Gap 11.3 mmol/L (3-11); BUN 9 mg/dL (7-18); Bilirubin, Total 0.6 mg/dL (0.2-1.0); CO2 22.7 mmol/L (21.0-32.0); CREATININE 0.8 mg/dL (0.55-1.02); Calcium 9.1 mg/dL (8.5-10.1); Chloride 103 mmol/L (98-107); Estimated GFR 105.45 (mL/min/1.73m2); Glucose 103 mg/dL (74-106); Potassium 3.3 mmol/L (3.5-5.1); Sodium 137 mmol/L (136-145); Total Protein 7.2 g/dL (6.4-8.2)
[2023-03-28] MEDS: Azithromycin 250 MG TAB 500 MG PO (08:38)
[2023-03-28 08:39] VITALS: RESP 18
[2023-03-28 08:41] LABS: Source Nasal/Nares
[2023-03-28] MEDS: Potassium Chloride Liquid 20 MEQ PKT PO (09:18)
[2023-03-28 09:20] VITALS: BP 116/62; PULSE 74; RESP 16; O2SAT 98
[2023-03-28 09:42] LABS: COVID-19 PCR Negative (Negative)
== END 2023-03-28 10:30 | disposition home or self-care (01) ==
PROVIDERS: Student in an Organized Health Care Education/Training Program; Emergency Provider Student in an Organized Health Care Education/Training Program; PCP Family Medicine
DX: H66.91 Otitis media, unspecified, right ear (principal); L50.0 Allergic urticaria; D89.40 Mast cell activation, unspecified
CPT/HCPCS: 80053; 87635; 87637; 85025; J1200; J2930